=== PATIENT | male | born 1975 | race Caucasian/White ===

== ENCOUNTER 2019-03-01 15:02 | Emergency (ER) | payer OTHER ==
[~2019-03-01] VITALS: Ht 188 cm; Wt 90.7 kg
[~2019-03-01 15:02] MED LIST: SULF1TAB24 PO
[2019-03-01 15:16] VITALS: BP 142/88
[2019-03-01] MEDS ORDERED: ALBU2.5V8 IH (15:31)
[2019-03-01] MEDS ORDERED: DOXY100T PO (15:31)
[2019-03-01] MEDS ORDERED: BENZ100C PO (15:31)
[2019-03-01] MEDS ORDERED: D-ME118S2 PO (15:31)
--- NOTE | 2019-03-01 15:31 | PHYS DOC ---
Past History Past Medical History: Kidney Stones Past Surgical History: Other Smoking: Non-smoker Alcohol Use: None Drug Use: None Adult General Chief Complaint Chief Complaint: COUGH HPI HPI Patient is a 43-year-old male who presents with a cough for the past 2 weeks. Seems to get worse in the afternoon and evening. No specific worsening with body position. He did have a fever at the onset. Robitussin seems to help. Nothing specifically seems to make it worse. He is just concerned because it has been going on for the past 2 weeks. He has a doctor's appointment in 4 days.[] Review of Systems Review of Systems Constitutional: See history of present illness[] Eyes: Denies change in visual acuity, redness, or eye pain [] HENT: Denies nasal congestion or sore throat [] Respiratory: The history of present illness, denies shortness of breath[] Cardiovascular: No chest pain or palpitations[] GI: Denies abdominal pain, nausea, vomiting, bloody stools or diarrhea [] : Denies dysuria or hematuria [] Musculoskeletal: Denies back pain or joint pain [] Integument: Denies rash or skin lesions [] Neurologic: Denies headache, focal weakness or sensory changes [] Endocrine: Denies polyuria or polydipsia [] All other systems were reviewed and found to be within normal limits, except as documented in this note. Allergies Allergies Allergies Coded Allergies Type Severity Reaction Last Updated Verified prochlorperazine Adverse Reaction Intermediate HAS THE OPPOSITE AFFECT 02/24/16 Yes Physical Exam Physical Exam Constitutional: Well developed, well nourished, no acute distress, non-toxic appearance. [] HENT: Normocephalic, atraumatic, bilateral external ears normal, oropharynx moist, no oral exudates, nose normal. Mild posterior pharyngeal streaking [] Eyes: PERRLA, EOMI, conjunctiva normal, no discharge. [] Neck: Normal range of motion, no tenderness, supple, no stridor. No cervical lymphadenopathy[] Cardiovascular:Heart rate regular rhythm, no murmur [] Lungs & Thorax: Bilateral breath sounds clear to auscultation [] Abdomen: Bowel sounds normal, soft, no tenderness, no masses, no pulsatile masses. [] Skin: Warm, dry, no erythema, no rash. [] Back: No tenderness, no CVA tenderness. [] Extremities: No tenderness, no cyanosis, no clubbing, ROM intact, no edema. [] Neurologic: Alert and oriented X 3, normal motor function, normal sensory function, no focal deficits noted. [] Psychologic: Affect normal, judgement normal, mood normal. [] Current Patient Data Vital Signs Vital Signs Date Time Temp Pulse Resp B/P (MAP) Pulse Ox O2 Delivery O2 Flow Rate FiO2 03/01/19 15:16 98.5 90 22 95 Room Air EKG EKG [] Radiology/Procedures Radiology/Procedures [] Course & Med Decision Making Course & Med Decision Making Pertinent Labs and Imaging studies reviewed. (See chart for details) Medical decision making: Believe this patient have a post-bronchitic cough. There is no evidence of pneumonia, hypoxia, nontoxic patient. Do not believe this to be congestive heart failure related. We will treat with symptomatic care and prescribed "just in case" antibiotics if he is not doing better in the next 2-3 days. Discussed the plan with the patient who voiced understanding. All questions were answered. He was discharged in improved condition.[] Dragon Disclaimer Dragon Disclaimer This electronic medical record was generated, in whole or in part, using a voice recognition dictation system. Departure Departure: Impression: Primary Impression: Cough Disposition: 01 HOME, SELF-CARE Condition: IMPROVED Referrals: CARLOS CHEUNG (PCP) Follow-up in 2 days Patient Instructions: Cough, Adult Additional Instructions: Drink plenty of fluids. Follow-up with your regular doctor scheduled. Return to the ER if worsening difficulty breathing, fever of more than 101, or any other concerns. Weight 2-3 days before filling the prescription for doxycycline. If feeling better with the other medication, do not take it all. If no improvement with the symptom relief medication, take the doxycycline as directed. Scripts Benzonatate (TESSALON PERLE) 100 Mg Capsule 1 CAP PO TID for cough, #30 CAP Prov: JESSY HOLMAN DO 03/01/19 D-Methorphan Hb/Prometh Hcl (PROMETHAZINE-DM SYRUP) 118 Ml Syrup 5 ML PO PRN Q4HRS for CONGESTION, #120 ML Prov: JESSY HOLMAN DO 03/01/19 Doxycycline Hyclate (DOXYCYCLINE HYCLATE) 100 Mg Tablet 1 TAB PO BID for infection, #20 TAB Prov: JESSY HOLMAN DO 03/01/19 Albuterol Sulfate (VENTOLIN HFA INHALER) 18 Gm Hfa.aer.ad 2 PUFF IH PRN Q4HRS PRN for FOR ASTHMA, #1 INHALER 0 Refills Prov: JESSY HOLMAN DO 03/01/19 JESSY HOLMAN DO Mar 01, 2019 15:31
== END 2019-03-01 15:34 | disposition home or self-care (01) ==
LOC: ER 15:02
DX: R05 Cough (principal); R50.9 Fever, unspecified; Z87.442 Personal history of urinary calculi; Z88.8 Allergy status to other drugs, medicaments and biological substances
CPT/HCPCS: 99283